=== PATIENT | male | born 1995 | race Asian ===

== ENCOUNTER 2019-11-12 10:53 | Emergency (ER) | payer BC ==
[~2019-11-12] VITALS: Ht 162.6 cm; Wt 65.9 kg
[2019-11-12] MEDS ORDERED: ACETAMINOPHEN 500 MG TABLET PO ONE (11:15)
--- NOTE | 2019-11-12 11:56 | PHYS DOC ---
Past Medical History Past Medical History: No Pertinent History Past Surgical History: No Surgical History Smoking Status: Never Smoker Alcohol Use: None General Adult EDM: Chief Complaint: FEVER HPI: HPI: Patient is a 24-year-old male who presents with his with concern about the coronavirus. Patient has had a 2 to 3-day history of fatigue, body aches fever, cough, congestion and pleuritic type chest pain. Patient does not know of any specific exposure but he does work in an [employer]. His has a very same symptoms that is started at essentially the same time. Patient denies any shortness of breath or dyspnea on exertion. [] Review of Systems: Review of Systems: Constitutional: Reports fever [] Eyes: Denies change in visual acuity. [] HENT: Reports sore throat [] Respiratory: Reports cough and pleuritic chest pain. [] Cardiovascular: Denies chest pain or edema. [] GI: Denies abdominal pain, nausea, vomiting, bloody stools or diarrhea. [] : Denies dysuria. [] Musculoskeletal: Denies back pain or joint pain. [] Integument: Denies rash. [] Neurologic: Denies headache, focal weakness or sensory changes. [] Endocrine: Denies polyuria or polydipsia. [] Lymphatic: Denies swollen glands. [] Psychiatric: Denies depression or anxiety. [] Heart Score: Risk Factors: Risk Factors: DM, Current or recent (<one month) smoker, HTN, HLP, family hi story of CAD, obesity. Risk Scores: Score 0 - 3: 2.5% MACE over next 6 weeks - Discharge Home Score 4 - 6: 20.3% MACE over next 6 weeks - Admit for Clinical Observation Score 7 - 10: 72.7% MACE over next 6 weeks - Early Invasive Strategies Current Medications: Current Medications Medications (Trade) Dose Ordered Sig/Lukas Start Time Stop Time Status Last Admin Dose Admin Acetaminophen (Tylenol) 1,000 mg 1X ONCE 11/12/19 11:15 11/12/19 11:16 DC 11/12/19 11:24 1,000 MG Allergies: Allergies: Allergies Coded Allergies Type Severity Reaction Last Updated Verified No Known Drug Allergies 11/12/19 No Physical Exam: PE: Constitutional: Well developed, well nourished, n appears acutely ill [] HENT: Normocephalic, atraumatic, bilateral external ears normal, oropharynx moist, no oral exudates, nose normal. [] Eyes: PERRLA, EOMI, conjunctiva normal, no discharge. [] Neck: Normal range of motion, no tenderness, supple, no stridor. [] Cardiovascular: Mild tachycardia [] Lungs & Thorax: Bilateral breath sounds clear to auscultation [] Abdomen: Bowel sounds normal, soft, no tenderness, no masses, no pulsatile masses. [] Skin: Warm, dry, no erythema, no rash. [] Back: No tenderness, no CVA tenderness. [] Extremities: No tenderness, no cyanosis, no clubbing, ROM intact, no edema. [] Neurologic: Alert and oriented X 3, normal motor function, normal sensory functi on, no focal deficits noted. [] Psychologic: Affect normal, judgement normal, mood normal. [] Current Patient Data: Vital Signs: Vital Signs Date Time Temp Pulse Resp B/P (MAP) Pulse Ox O2 Delivery O2 Flow Rate FiO2 11/12/19 10:57 102.9 111 20 111/67 (82) 98 Room Air 102.9 EKG: EKG: [] Radiology/Procedures: Radiology/Procedures: []REASON: cough fever PROCEDURE: CHEST AP ONLY Single view of the chest. 11/12/2019 11:29 AM Indication: Cough, fever Comparison: None available Findings: Low lung volumes are noted which augment the cardiomediastinal silhouette and pulmonary vasculature. Hazy appearance of the left mid and lower lung could represent infiltrate or atelectasis. No pneumothorax or pleural effusion is seen. Heart size is normal. Bony thorax is intact. IMPRESSION: Low lung volumes with hazy opacity in the left mid and lower lung posterior/atelectasis or infiltrate. Consider short-term follow-up two-view chest radiograph . Course & Med Decision Making: Course & Med Decision Making Pertinent Labs and Imaging studies reviewed. (See chart for details) [ED course: Evaluation reveals a young man with fever and cough. I certainly believe that he fits more of a viral infection however his chest x-ray was concerning for either atelectasis or an early infection. I will go ahead and start him on antibiotics.] Magui Disclaimer: Magui Disclaimer: This electronic medical record was generated, in whole or in part, using a voice recognition dictation system. Departure Departure Impression: Primary Impression: Suspected 2019 novel coronavirus infection Additional Impression: Pneumonia Qualified Codes: J18.9 - Pneumonia, unspecified organism Disposition: 01 HOME, SELF-CARE Condition: STABLE Referrals: NO PCP (PCP) Patient Instructions: Pneumonia, Adult, Viral Syndrome Additional Instructions: Thank you for visiting [facility]. We appreciate you trusting us with your care. If any additional problems come up don't hesitate to return to visit us. Please follow up with your primary care provider so they can plan additional care if needed and know about the problem that you had. If symptoms worsen come back to the Emergency Department. Any concerning symptoms that start such as chest pain, shortness of air, weakness or numbness on one side of the body, running high fevers or any other concerning symptoms return to the ER. You have a viral syndrome which may include symptoms like muscle aches, fevers, chills, runny nose, cough, sneezing, sore throat, vomiting, or diarrhea. One of the potential viruses that you may have is SARS-CoV-2, the virus that causes COVID-19, also known as the Coronavirus. You are just as likely to have a different viral infection such as the common cold, flu, etc. Most patients with the Coronavirus have mild symptoms and recover on their own. Resting, staying hydrated, and sleep from known cases can be helpful. As of todays visit, you are well enough to go home and treat your symptoms with oral fluids and over the counter medications. Coronavirus testing is not performed on most people with mild symptoms who are being discharged from the emergency department. If Coronavirus testing was performed the results will not be available for possibly up to 2-3 days. If your result is positive you will be contacted. Please follow the following precautions at home: 1) Stay home except to get medical care. 2) As advised by the CDC we recommend you stay in your home and minimize contact with other people. We do not want you to spread the infection. 3) Those who are older or have significant medical issues may have more severe symptoms from this infection. We recommend self-isolation,FOR AT LEAST 7 DAYS after your 1st day of symptoms. AFTER you feel better please wait AT LEAST ANOTHER WEEK before returning to regular activities and being around other people! 4) IF you become sicker and have difficulty breathing, chest pain, unable to eat/drink, severe vomiting, diarrhea, or weakness you may need to return to the Emergency Department. 5) You should restrict activities outside your home, except for getting medical care. DO NOT go to work, school, or public areas. Avoid using public transportation, ride sharing, or taxis. 6) Separate yourself from other people in your home. You should use a separate bathroom if possible. 7) Avoid sharing personal household items such as dishes, cups, eating utensils, towels, etc. 8) Clean all high touch surfaces every day (door knobs, counter tops, etc). Use a household cleaning spray or wipe per label instructions. 9) Clean your hands often. Wash your hands with soap and water for at least 20 seconds. 10) Cover your mouth and nose with a tissue when you cough or sneeze. 11) Throw used tissues in a trash can and immediately wash your hands. For additional resources please visit the CDC website or the [place] Department [facility] ([phone]). Scripts Azithromycin (ZITHROMAX) 250 Mg Tablet 1 PKG PO UD for bronchitis, #6 TAB Take 2 tablets on day 1 and then 1 tablet each day for the next 4 days as directed Prov: PASQUALE MUNOZ DO 11/12/19 PASQUALE MUNOZ DO Nov 12, 2019 11:56
--- NOTE | 2019-11-12 12:07 | RAD ---
Single view of the chest. 11/12/2019 11:29 AM Indication: Cough, fever Comparison: None available Findings: Low lung volumes are noted which augment the cardiomediastinal silhouette and pulmonary vasculature. Hazy appearance of the left mid and lower lung could represent infiltrate or atelectasis. No pneumothorax or pleural effusion is seen. Heart size is normal. Bony thorax is intact. IMPRESSION: Low lung volumes with hazy opacity in the left mid and lower lung posterior/atelectasis or infiltrate. Consider short-term follow-up two-view chest radiograph . Electronically signed by: Lobo Rock MD (11/12/2019 12:04 PM) [id number]
[2019-11-12] MEDS ORDERED: AZIT250T PO (12:13)
[2019-11-12 12:27] VITALS: BP 121/73
== END 2019-11-12 12:32 | disposition home or self-care (01) ==
LOC: ER 10:53
DX: U07.1 COVID-19 (principal); J18.9 Pneumonia, unspecified organism; R05 Cough; R09.81 Nasal congestion; R07.81 Pleurodynia; Z20.818 Contact with and (suspected) exposure to other bacterial communicable diseases
CPT/HCPCS: 36415; 71045; 87635; 99284